=== PATIENT | female | born 1980 | race Caucasian/White ===

== ENCOUNTER 2017-01-28 12:42 | Emergency (ER) | payer BC ==
[~2017-01-28] VITALS: Ht 152.4 cm; Wt 82.7 kg
[2017-01-28 14:27] LABS: HEMATOCRIT 41.4 % (36.0-46.0); MCHC 33.8 G/DL (30.0-36.0); MCV 85.9 FL (83-99); MEAN PLAT.VOLUME 9.8 uM^3 (9.5-12.4); PLATELET COUNT 206 K/uL (156-360); RBC DIS.WIDTH-CV 12.9 % (11.8-14.6); RBC DIS.WIDTH-SD 40.2 % (39-53); RED BLOOD COUNT 4.82 M/uL (3.80-5.20); WHITE BLOOD COUNT 4.4 K/uL (4.1-10.2)
[2017-01-28 14:38] LABS: CHLORIDE 105 mEq/L (99-109); POTASSIUM 3.8 mEq/L (3.7-5.4); SODIUM 137 mEq/L (136-147)
[2017-01-28 14:41] LABS: GLUCOSE 91 mg/dL (70-99)
[2017-01-28 14:42] LABS: ANION GAP 12 MEQ/L (2-14); TOTAL BILIRUBIN 0.6 mg/dL (0.0-1.0)
[2017-01-28 14:44] LABS: ALKALINE PHOSPHATASE 104 IU/L (3-129); GFR ESTIMATE (CALCULATED) > 59 mL/min/
[2017-01-28 14:45] LABS: UREA NITROGEN (BUN) 14 mg/dL (9-23)
[2017-01-28 14:46] LABS: DIRECT BILIRUBIN 0.2 mg/dL (0.0-0.3)
[2017-01-28 14:48] LABS: LIPASE 11 U/L (1.0-51.0)
[2017-01-28 14:54] LABS: QUANTITATIVE HCG < 4.0 MIU/ML
[2017-01-28 15:44] LABS: ADD MIUA? YES; BILIRUBIN NEGATIVE; BLOOD SMALL; COLOR YELLOW ((YELLOW)); GLUCOSE (STRIP) NEGATIVE; KETONES 80; LEUKOCYTES NEGATIVE; NITRITE NEGATIVE; PROTEIN (STRIP) NEGATIVE; SPECIFIC GRAVITY 1.017 (1.000-1.030); UROBILINOGEN 0.2 MG/DL (0.2-1.0)
[2017-01-28 15:50] LABS: BACTERIA RARE /HPF; EPITHELIAL CELLS 1+ /HPF; MUCUS TRACE /LPF; UCUL ADDED? NO; WHITE BLOOD CELLS 0-5 /HPF (0-5)
[2017-01-28] MEDS ORDERED: ZANTAC300 MG PO (20:07)
[2017-01-28] MEDS ORDERED: REGLAN10 MG PO (20:07)
[2017-01-28 20:21] VITALS: BP 142/88
== END 2017-01-28 20:26 | disposition home or self-care (01) ==
LOC: EME 12:42
DX: R10.13 Epigastric pain (principal); R11.2 Nausea with vomiting, unspecified; E86.0 Dehydration; Z87.442 Personal history of urinary calculi; Z90.49 Acquired absence of other specified parts of digestive tract; Z87.891 Personal history of nicotine dependence
CPT/HCPCS: 80053; 81003; 82248; 83690; 84702; 85027; 93005; 99281; 99285; C9113; J2405; J2765; J7030; S0028